=== PATIENT | female | born 1980 | race Caucasian/White ===

== ENCOUNTER → 2016-04-20 | Outpatient (CLI) | payer BC ==
[~2016-04-20] MED LIST: DARVOCET-N 1001 EACH PO; FLONASE 50 MCG16 GM; IRON TABLETS325 MG OR; LEVOTHYROXIN0.125 MG PO; LISINOPRIL 10MG10 MG PO; MOTRIN400 MG PO; PERCOCET 5/3251 EACH PO; PRENATAL PLUS1 TA1 OR; SULFAMETHOXAZOL1 TA6 PO; ZITHROMAX Z PA250 MG PO
--- NOTE | 2016-04-20 16:43 | RADIOLOGY REPORT PS360 ---
KNEE-4 OR 5 VIEWS-RT Comparison: Previous right knee August 2006 History: Right knee pain acute pain constant pain Technique: Weightbearing AP, lateral and Crain views were performed as well as oblique. Findings: Slight progression of degenerative changes at the right knee. Only slight progression of early tricompartmental sharpening and marginal osteophytes. Most evident at medial margin of joint . Only note some borderline/narrowing of medial compartment on standing weightbearing views. Overall joint space remains fairly well maintained Question upper normal to scant joint effusion at suprapatellar bursa. A lateral view. Normal patellofemoral relationships on the sunrise view Impression: Very minimal Early degenerative changes right knee.
== END ==
LOC: RAD 12:11
DX: M25.561 Pain in right knee (principal)

== ENCOUNTER 2016-04-22 20:24 | Emergency (ER) | payer BC ==
[~2016-04-22] VITALS: Ht 160 cm; Wt 131.5 kg
[~2016-04-22 20:24] MED LIST changes: -FLONASE 50 MCG16 GM; -LEVOTHYROXIN0.125 MG PO; -LISINOPRIL 10MG10 MG PO; -ZITHROMAX Z PA250 MG PO
[2016-04-22] MEDS ORDERED: LEVOTHYROXIN0.125 MG PO (20:40)
[2016-04-22] MEDS ORDERED: LISINOPRIL 10MG10 MG PO (20:40)
[2016-04-22] MEDS ORDERED: ZITHROMAX Z PA250 MG PO (20:56)
[2016-04-22] MEDS ORDERED: FLONASE 50 MCG16 GM (20:56)
--- NOTE | 2016-04-22 20:57 | Urgent Treatment Center Report ---
History of Present Issue Date/Time Seen by Provider 04/22/162039 Visit Reason Pt arrived:Walked Presenting Problem:c/o cough, headache x 3 days Location if Accident: Onset of symptoms date/time:/ or onset unknown for:MEDICAL HX UNKNOWN Have you (or family members/close friends) recently traveled outside the [place]? N If Yes, where/when: Have you had exposure to infectious disease within the past month? TB? Other? Specify: Patient states that she has not felt well for 3-4 days and had flu like symptoms , cough, headache body aches states that she began feeling this way after sitting in Doctors office with some sick people ALLERGIES Coded Allergies: Penicillins (04/22/16) Home Medications Reported Medications MULTIVIT-MIN W/FE-FA ( Multivitamin Tablet) 1 TAB OR DAILY Ferrous Sulfate (Iron Tablet) 325 MG OR DAILY Levothyroxine Sodium (Levothyroxine 0.125MG) 0.125 MG PO DAILY LISINOPRIL (Lisinopril) 10 MG PO DAILY History Medical History General Angina: No ME: No Hypertension? Yes Hyperlipidemia? No CHF? No COPD? No Asthma? Yes Thyroid Problems? Yes CVA? No Seizures? No Diabetes? No GB Disease: No Nephritic Syndrome? No Asplenia? No Sickle Cell Disease? No MRSA? No TB? No Cancer? No Immunization HX DT/Tetanus 2004 Flu NEVER Pneumonia REFUSES Surgical Hx Previous Surgery?Y tubal ligation Social History Smoking Hx Smoker: Current Every Day Smoker Tobacco: Yes Type Cigarettes Packs/day < 1 Pack Alcohol Alcohol: No Review of Systems All Other Systems Reviewed and Negative Eyes denies no symptoms reported ENT ear pain, nose pain, nose congestion, throat pain. Respiratory cough Physical Exam Vital Signs Vital Signs Date Time Temp Pulse Resp B/P Pulse O2 O2 Flow FiO2 Ox Delivery Rate 04/22 2035 98.1 59 24 132/102 99 General Appearance normal appearance Ear, Nose, Throat sinus pain/drainage, nasal congestion, throat red, irritated, drainage noted, drainage from sinuses noted as green/yellow Respiratory Status Yes: trachea midline, chest symmetrical, non tender chest. No: respiratory distress. Cardiovascular normal exam, no peripheral edema, no gallop, no JVD Neurologic alert, normal exam Medical Decision Making LABS/Meds/Orders Pt receiving controlled substance in ED? No Results/Orders Laboratory Tests 04/22/162050: Influenza Type A Ag NOT DETECTED, Influenza Type B Ag NOT DETECTED Orders Procedure Date/time Status [facility] FLU A,B 04/22 2050 Complete Departure Departure Time of Disposition 2054 Disposition DC/XFER from ER to [facility] Clinical Impression Primary Impression: Upper respiratory infection Qualifiers: URI type: unspecified URI Qualified Code: J06.9 - Acute upper respiratory infection, unspecified Condition STABLE Referrals Wing FLORES,Dorian Pham (Family) Patient Instructions DI for Cough-Child, Sore Throat Discharge Counseling Counseled pt/family regarding diagnosis, medications/RX, home care, follow up needs Prescriptions Current Visit Scripts Azithromycin (Zithromycin (Z-TISH) 250MG Tab) 250 MG PO DAILY #6 TAB TAKE TWO (2) TABLETS ON DAY 1, THEN ONE (1) TABLET DAY #2 THRU #5 Fluticasone Propionate (Flonase 50 Mcg Nasal [place]) 2 SPRAY NA DAILY #1 BOT at 2055
[2016-04-22 21:15] VITALS: BP 132/102
== END 2016-04-22 21:18 | disposition short-term general hospital (02) ==
LOC: UTC 20:24
DX: J06.9 Acute upper respiratory infection, unspecified (principal); I10 Essential (primary) hypertension; Z72.0 Tobacco use

== ENCOUNTER → 2016-06-15 | Outpatient (CLI) | payer BC ==
[~2016-06-15] MED LIST changes: +FLONASE 50 MCG16 GM; +LEVOTHYROXIN0.125 MG PO; +LISINOPRIL 10MG10 MG PO; +ZITHROMAX Z PA250 MG PO
--- NOTE | 2016-06-15 11:16 | CARDIOVASCULAR REPORT ---
"Venous Exam Indications: 729.5 Pain in limb. 782.3 Edema. IMPRESSIONS No evidence of deep or superficial vein thrombosis involving the right lower extremity History: Right lower extremity pain. Edema of the right leg. Risk factors: Obese. Morbid obesity. Patient denies trauma. States that pain has primarily been behind the right knee x 2 weeks. Right lower extremity venous duplex evaluation. Doppler flow study including spectral analysis, color and dempsey scale imaging. Location: Vascular laboratory. Patient status: Outpatient. CRITICAL FINDINGS - Reported to: JACKIE [address] office - Read back and verified. - 06/15/16 - 10:40 - RLE negative for DVT or SVT, fuentes cyst seen behind right knee Incidental findings: A Fuentes's cyst is noted incidentally on the right. Measures 2.45 cm x 1.62 cm Tables: Venous flow and imaging: + +-------+ + |Location |Overall|Flow properties | + +-------+ + |Right common femoral |Patent |Normal phasicity; spontaneous; | | | |normal augmentation; compressible| + +-------+ + |Right saphenofemoral junction|Patent |Compressible | + +-------+ + |Right profunda femoral |Patent |Compressible | + +-------+ + |Right femoral |Patent |Normal phasicity; spontaneous; | | | |normal augmentation; compressible| + +-------+ + |Right greater saphenous |Patent |Normal phasicity; spontaneous; | | | |normal augmentation; compressible| + +-------+ + |Right popliteal |Patent |Normal phasicity; spontaneous; | | | |normal augmentation; compressible| + +-------+ + |Right posterior tibial |Patent |Compressible | + +-------+ + |Right peroneal |Patent |Compressible | + +-------+ + |Right gastrocnemius |Patent |Compressible | + +-------+ + |Right soleal |Patent |Compressible | + +-------+ + (Report amended ) Electronically signed by: Roger Adler [id number]"
--- NOTE | 2016-06-15 13:08 | RADIOLOGY REPORT PS360 ---
KNEE-4 OR 5 VIEWS-RT HISTORY: ACUTE RT KNEE PAIN ORDERING PHYSICIAN: Sylvia Benavides PATIENT AGE: 35 years COMPARISON: 04/20/2016 FINDINGS: There are mild osteoarthritic changes involving all 3 compartments slightly greater at the medial compartment with small osteophytes and slight decrease in joint space medially. These findings are similar when compared to the previous exam. There is now however increased density in the suprapatellar region suggesting knee joint effusion. IMPRESSION: Mild osteoarthritic change with knee joint effusion
== END ==
LOC: RT 10:19
DX: M25.561 Pain in right knee (principal)

== ENCOUNTER → 2016-07-05 | Outpatient (CLI) | payer BC ==
--- NOTE | 2016-07-06 10:57 | RADIOLOGY REPORT PS360 ---
MRI-LOW EXT ANY JOINT W/O-RT HISTORY: Pain with limited range of motion. Pain medially. Knee pain and swelling inferior to patella TEAR OF MEDIAL MENISCUS OF RIGHT KNEE ORDERING PHYSICIAN: Lit Thomas MD PATIENT AGE: 35 years COMPARISON: Radiograph of 06/15/2016 TECHNIQUE: Standard multiplanar multiecho sequences are performed without contrast. FINDINGS: The cruciate ligaments, collateral ligaments, patellar tendon, and quadriceps tendon appear intact. There is some slight increased T2 signal involving the patellar tendon at the insertion on the tibial tuberosity suggesting some mild tendinopathy/tendinosis. Some mild motion artifact which does somewhat obscure evaluation of the menisci. There is a bucket-handle tear involving the central aspect/lateral aspect of the posterior horn of the medial meniscus which is best demonstrated on the coronal STIR images. The central meniscal fragment measures approximate 6 mm and is displaced centrally by approximately 3 to 4 mm. There is slight decrease in the medial and lateral joint space as well as patellofemoral joint space with small osteophytes along the posterior aspect of the patella consistent with tricompartmental osteoarthritic changes. The patellar cartilage however is fairly well preserved. There is a moderate sized knee joint effusion in the suprapatellar region. A prominent Fuentes's cyst is also noted measuring 5.7 x 2.3 cm. No fracture or dislocation. No bone marrow edema apparent. IMPRESSION: 1. Bucket-handle tear involving the lateral aspect of the posterior horn of the medial meniscus with mild meniscal displacement 2. Mild tricompartmental osteoarthritic change. 3. Moderate size suprapatellar effusion and Fuentes's cyst 4. Tendinopathy/tendinosis of the patellar tendon
== END ==
LOC: RAD 14:16
DX: S83.241A Other tear of medial meniscus, current injury, right knee, initial encounter (principal)

== ENCOUNTER 2016-10-15 09:08 | Day surgery (SDC) | payer BC ==
[~2016-10-15] VITALS: Ht 160 cm; Wt 131.5 kg
--- NOTE | 2016-10-15 12:48 | Anesthesia Record ---
Anesthesia Record Part I Total IV fluids: 800 EBL (ml): 10 Urine Output: 0 B/P: 159/84 % SaO2: 99 Pulse: 81 Resps: 10 Temp: 97.9 Patient is: Awake, Stable Stable to PACU at: 1230 at 1248
--- NOTE | 2016-10-15 12:49 | Anesthesia Record ---
Anesthesia Record Part II Discharge time: 1300 Destination: Same day surgery PACU nurse assessment review? Yes Patient is: Awake, Stable Anesthesia complications? No at 2870
[2016-10-15 15:13] VITALS: BP 120/82
--- NOTE | 2016-10-15 15:34 | Operative Note ---
Procedure/Operative Record Date of Procedure: 10/15/16 Pre-op diagnosis: #1 osteoarthritis RIGHT knee #2 medial meniscal tear, RIGHT knee Post-op diagnosis: Same Procedure performed: #1 Debridement RIGHT knee osteoarthritis RIGHT knee #2 arthroscopic evaluation of RIGHT knee medial meniscal tear Surgeon: Lit Thomas Anesthesia: Gen. anesthetic Indications: This patient is a 35-year-old female with known osteoarthritis of the RIGHT knee. She also has pain suggestive of a medial meniscal tear and an MRI also suggestive of a medial meniscal tear with a questionable bucket-handle component per radiologist. Evaluation arthroscopically is indicated to remove any significant medial meniscal tear and also to debride any loose tissues created by the osteoarthritic process. Findings: Under anesthesia, the knee was ligamentously stable. Arthroscopically, we found the patella to track normally. There were small bits and pieces of cartilaginous debris in the suprapatellar pouch and the medial and lateral gutters. There was significant grade 3 chondromalacia of the patella particularly the central ridge and lateral facet. There was grade 3 changes of the medial femoral condyle anterior and weightbearing surfaces. The posterior surfaces the mediofemoral condyle appeared more normal with grade I and II changes. The medial meniscus actually appeared intact except for a very small tear at the posterior horn of the meniscus. This appeared stable and was not felt to be any significant pain generator. We did not see any evidence of a bucket handle meniscal tear. The tibial cartilage medially showed grade II changes. The lateral compartment showed some delamination of the articular cartilage anteriorly adjacent to the notch. In the figure 4 position the lateral meniscus was overall intact and no tears were noted. More minor changes in the grade I and II range were noted for the lateral compartment the notch, at the superior aspect, to osteophytes were noted. The anterior cruciate ligament appeared overall intact and perhaps a bit lax but certainly functional. The synovium was not removed for visualization of the posterior cruciate ligament. What could be seen in the posterior cruciate ligament appeared intact without evidence of pathology. Description of procedure: The patient was taken to the operating room and placed in the supine position and a general anesthetic applied. She was then positioned appropriately on the operating room table followed bony prominences well padded. The LEFT leg was placed in a well leg craig. A lateral post was placed and the knee prepped and draped in the usual sterile fashion. Under anesthesia, bony landmarks were palpated and marked as needed. Knee stability was confirmed. An anterolateral portal was made and the 4 mm arthroscope introduced. An initial examination of the knee was conducted and the arthroscope brought into the medial position where a spinal needle was utilized to help demarcate the appropriate position for a an anteromedial portal. This was created and the operation conducted through these two portals. We began with debridement of synovium and fat pad a bit to increase visualization. We inspected the patellofemoral joint, both gutters, the notch, the medial compartment, and the lateral compartment. The medial compartment was opened with use of the lateral post and lateral compartment with use the figure 4 position. Significant chondromalacia was encountered on the medial femoral condyle. We had some difficulty visualizing the posterior aspect of the medial meniscus but were able to probe the anterior 80 percent. For the remaining 20 percent, we improve visualization by placing the arthroscope anteromedially. Very small amounts of fraying were noted consistent with a minor nondisplaced posterior horn tear. We flexed the knee to 20 degrees and externally rotated the tibia to cruise visualization. The knee was extended as well with this rotational maneuver to increase visualization. Following this, we inspected the lateral compartment by placing the patient in figure 4 position. The meniscus was stable laterally and no tears were noted with probing. We inspected the notch with the above findings. The two small osteophytes were removed with a 4 mm shaver. Delaminated cartilage was noted and removed from the weightbearing surface adjacent to the notch on the lateral femoral condyle active stable cartilage. We removed all bits and pieces of debris, irrigated with arthroscopic fluid and used the shaver on suction to remove fluid in bits and pieces of debris. We flexed and extended the knee as well as palpated the popliteal fossa during this process. We reinspected the pouch, the gutters, the notch, and the medial lateral compartments. Excess fluid was removed, portals closed, dressings applied, and the patient transported to the recovery room in satisfactory condition. Arthroscopic photographs were presented to the patient's family () with request that he bring the photographs to the patient's post operative visit. EBL (ml): 1 at 7802
[2016-10-31] MEDS ORDERED: PRILOSEC20 M1 PO (20:25)
== END 2016-10-15 13:47 | disposition home or self-care (01) ==
LOC: SDC 09:08
PROVIDERS: Orthopaedic Surgery
PROC: 0SBC4ZZ Excision of Right Knee Joint, Percutaneous Endoscopic Approach (ICD-10-PCS; principal; 2016-10-15 10:30)
DX: M17.11 Unilateral primary osteoarthritis, right knee (principal)
CPT/HCPCS: J2405

== ENCOUNTER → 2017-02-07 | Outpatient (CLI) | payer BC ==
[~2017-02-07] MED LIST changes: +PRILOSEC20 M1 PO
--- NOTE | 2017-02-07 14:51 | RADIOLOGY REPORT PS360 ---
CHEST(2 VIEWS-NOT PORTABLE) HISTORY: COUGH ORDERING PHYSICIAN: NIKI ERAZO PATIENT AGE: 36 years COMPARISON: None available FINDINGS: The cardiomediastinal silhouette and pulmonary vascularity are within normal limits. The lungs are clear without infiltrates, suspicious nodules, or pleural effusions. No acute bony abnormalities. IMPRESSION: Negative chest, no acute finding
== END ==
LOC: RAD 10:06
DX: R05 Cough (principal)